=== PATIENT | male | born 1950 | race Caucasian/White ===

== ENCOUNTER → 2016-12-28 | Outpatient (CLI) | payer MEDICARE, OTHER ==
[2016-12-28 18:25] LABS: CALCIUM LEVEL 8.6 MG/DL (8.8-10.2); CREATININE FOR GFR 1.64 MG/DL (0.70-1.30); GLOMERULAR FILTRATION RATE 44.7 (>49); POTASSIUM SERUM 4.6 MEQ/L (3.5-5.1)
== END ==
LOC: M SMT 14:46
PROVIDERS: ATTEND Nurse Practitioner Women's Health
DX: N13.39 Other hydronephrosis (principal)
CPT/HCPCS: 36415; 51703; 80048; G0463

== ENCOUNTER → 2016-12-31 | Outpatient (CLI) | payer MEDICARE, OTHER ==
--- NOTE | 2016-12-31 11:14 | REP ---
Clinical: Benign prostatic hypertrophy. Technique: Real time georges scale and color evaluation of the kidneys and bladder using curved array transducer. Findings: The bilateral kidneys demonstrate subtle age-related changes. The right kidney is relatively normal in contour, size, echogenicity and reniform shape without hydronephrosis, nephrolithiasis or cystic abnormality. Right kidney measures 13.9 x 7.0 x 5.5 cm and a 1.1 cm angiomyolipoma in the lower pole cannot be excluded. The left kidney is relatively normal in contour, size, echogenicity and reniform shape with mild hydronephrosis, but no evidence for nephrolithiasis, cystic or mass lesion. Left kidney measures 13.1 x 5.3 x 6.8 cm. A Flaherty catheter is identified in collapsed bladder and bladder mass cannot be excluded. Impression: 1. 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 2. Flaherty catheter is identified in collapsed bladder and bladder mass cannot be excluded. Further evaluation possibly with cystoscopy may be warranted. Signed by Alverto Zambrano MD 12/31/2016 11:06 A
== END ==
LOC: M RAD 10:14
PROVIDERS: ATTEND Nurse Practitioner Women's Health
DX: N40.1 Benign prostatic hyperplasia with lower urinary tract symptoms (principal); N28.9 Disorder of kidney and ureter, unspecified; N13.30 Unspecified hydronephrosis

== ENCOUNTER → 2017-01-11 | Outpatient (REF) | payer MEDICARE, OTHER ==
[2017-01-11 20:49] LABS: BACTERIA, URINE LARGE AMOUNT; HYALINE CAST, URINE NONE SEEN /lpf (0-1); MICROSCOPIC EXAM PERFORMED; RBC, URINE TNTC /hpf (0-3); SQUAMOUS EPITHELIAL CELL URINE NONE SEEN /hpf (SMALL AMT); WBC, URINE TNTC /hpf (0-3)
== END ==
LOC: M SMT 16:17
PROVIDERS: ATTEND Specialist
DX: N40.1 Benign prostatic hyperplasia with lower urinary tract symptoms (principal); R33.8 Other retention of urine; R31.0 Gross hematuria; N39.0 Urinary tract infection, site not specified

== ENCOUNTER → 2017-01-15 | Outpatient (CLI) | payer MEDICARE, OTHER ==
[~2017-01-15] MED LIST: FUROSEMIDE 20 MG/2 ML VIAL (J1940) As Ordered ONE
--- NOTE | 2017-01-15 11:49 | REP ---
NUCLEAR RENAL SCINTIGRAPHY WITH DIFFERENTIAL FLOW AND FUNCTION ANALYSIS AND POST LASIX RENOGRAPHY : HISTORY: BPH with lower urinary symptoms. TECHNIQUE: 8.7 mCi technetium 99m MAG 3 is injected and posterior flow and excretory phase images are acquired. Renal cortical regions of interest are drawn and time activity curves are plotted for renal function analysis. 20 mg of intravenous Lasix is administered and post Lasix washout venography is acquired. SCINTIGRAPHIC FINDINGS: Posterior flow study shows symmetric perfusion of the renal beds. Excretory phase images suggest that the right kidney is larger than the left. No mass lesion is seen on either side. Renal collecting system labeling is observed symmetrically bilaterally at 3 minutes. There is some fullness of the intrarenal collecting systems bilaterally. Pre and postvoid bladder images show postvoid bladder residual . Differential renal function analysis is asymmetric with 32% of renal cortical counts coming from the left kidney and 68% coming from the right. [id number]-[id number] activity is essentially normal bilaterally at 3.0 minutes. Qbtv-[id number] max activity however is quite dilated over 30 minutes bilaterally. Renal excretion curves are flat. Post Lasix venography shows fairly flat post Lasix renal pelvic curves as well with poor clearance. No t-1/2 could be reached on either side in the 29-minute observation period after Lasix. IMPRESSION: Findings consistent with bilateral impaired excretory function. Flow is symmetric. The right kidney is larger than the left. There is poor Lasix washout of dilated intrarenal collecting system bilaterally. I cannot exclude bilateral obstructive uropathy. The initial postvoid images show some postvoid residual. The post Lasix postvoid images show complete emptying of the bladder. Signed by Haris Smith MD 01/15/2017 01:20 P
== END ==
LOC: M RAD 09:09
PROVIDERS: ATTEND Specialist
DX: N40.1 Benign prostatic hyperplasia with lower urinary tract symptoms (principal)
CPT/HCPCS: 78708; A9562; J1940

== ENCOUNTER → 2017-01-18 | Outpatient (CLI) | payer MEDICARE, OTHER | LOC: M SMT 09:18 | PROVIDERS: ATTEND Specialist | DX: N40.1 Benign prostatic hyperplasia with lower urinary tract symptoms (principal) | CPT/HCPCS: 36415; 51702; G0103; G0463 ==

== ENCOUNTER → 2017-01-25 | Outpatient (REF) | payer MEDICARE, OTHER | LOC: M LAB REF 13:28 | PROVIDERS: ATTEND Nurse Practitioner Women's Health | DX: N39.0 Urinary tract infection, site not specified (principal) ==

== ENCOUNTER → 2017-03-09 | Outpatient (REF) | payer MEDICARE, OTHER | LOC: M LAB REF 12:43 | PROVIDERS: ATTEND Internal Medicine Nephrology | DX: N32.0 Bladder-neck obstruction (principal); N13.9 Obstructive and reflux uropathy, unspecified ==

== ENCOUNTER → 2017-05-05 | Outpatient (CLI) | payer MEDICARE, OTHER ==
--- NOTE | 2017-05-05 15:39 | REP ---
TRANSRECTAL PROSTATE ULTRASOUND: Transrectal prostate ultrasound performed. The prostate gland measures 3.1 x 2.7 x 4.0 cm for a total volume of 17.7 mL. Echotexture is diffusely heterogeneous. There are some echogenic calcifications. No discrete nodule is seen within the prostate. The seminal vesicles appear symmetrical. IMPRESSION: No prostate nodule sonographically. Signed by Mic Olivas MD 05/05/2017 05:09 P
== END ==
LOC: M SMT 13:01
PROVIDERS: ATTEND Specialist
DX: N40.1 Benign prostatic hyperplasia with lower urinary tract symptoms (principal)

== ENCOUNTER → 2017-09-10 | Outpatient (CLI) | payer MEDICARE, OTHER ==
[2017-09-10 14:15] LABS: ANION GAP 8 MEQ/L (8-16); BLOOD UREA NITROGEN 24 MG/DL (7-18); CALCIUM LEVEL 9.1 MG/DL (8.8-10.2); CARBON DIOXIDE LEVEL 27 MEQ/L (21-32); CHLORIDE LEVEL 108 MEQ/L (98-107); CREATININE FOR GFR 1.78 MG/DL (0.70-1.30); GLOMERULAR FILTRATION RATE 40.5 (>49); GLUCOSE, FASTING 86 MG/DL (70-100); SODIUM LEVEL 143 MEQ/L (136-145)
[2017-09-10 14:17] LABS: POTASSIUM SERUM 5.3 MEQ/L (3.5-5.1)
== END ==
LOC: M SMT 10:41
DX: Z01.89 Encounter for other specified special examinations (principal)

== ENCOUNTER 2018-01-05 06:42 | Day surgery (SDC) | payer MEDICARE, OTHER ==
[2018-01-05] MEDS: NS 1,000 ML IV (07:11)
[2018-01-05] MEDS ORDERED: PROPOFOL 200 MG/20 ML VIAL As Ordered ×2 (07:31→08:26)
[2018-01-05] MEDS ORDERED: LIDOCAINE 2% INJ 100 MG/5 ML SDV (FOR ANES.) As Ordered (07:31)
[2018-01-05] MEDS ORDERED: fentaNYL 100 MCG/2 ML INJECTION (J3010) As Ordered (07:58)
== END 2018-01-05 09:13 | disposition home or self-care (01) ==
LOC: M OPP 06:42
DX: Z12.11 Encounter for screening for malignant neoplasm of colon (principal); K64.0 First degree hemorrhoids; Z98.0 Intestinal bypass and anastomosis status; K63.89 Other specified diseases of intestine; K57.30 Diverticulosis of large intestine without perforation or abscess without bleeding; Z86.010 Personal history of colon polyps; K22.8 Other specified diseases of esophagus; K44.9 Diaphragmatic hernia without obstruction or gangrene; R12 Heartburn; I10 Essential (primary) hypertension; J44.9 Chronic obstructive pulmonary disease, unspecified; E78.00 Pure hypercholesterolemia, unspecified; K22.70 Barrett's esophagus without dysplasia; Z79.82 Long term (current) use of aspirin; Z79.899 Other long term (current) drug therapy; Z87.891 Personal history of nicotine dependence
CPT/HCPCS: 45380

== ENCOUNTER → 2021-04-07 | Outpatient (REF) | payer MEDICARE, OTHER ==
[~2021-04-07] MED LIST changes: +ATEN50TA2 PO; -FUROSEMIDE 20 MG/2 ML VIAL (J1940) As Ordered ONE; +LISI20TA33 PO; +MAGN1TAB26 PO; +OMEP1CAP73 PO; +SIMV20TA22 PO
== END ==
LOC: M LAB REF 13:30
PROVIDERS: ATTEND Internal Medicine Nephrology
DX: E83.42 Hypomagnesemia (principal)

== ENCOUNTER → 2021-10-08 | Outpatient (REF) | payer MEDICARE, OTHER | LOC: M LAB REF 12:59 | PROVIDERS: ATTEND Nurse Practitioner Family | DX: N18.31 Chronic kidney disease, stage 3a (principal); E83.42 Hypomagnesemia ==

== ENCOUNTER 2023-06-16 07:26 | Day surgery (SDC) | payer MEDICARE, OTHER ==
[~2023-06-16] VITALS: Ht 177.8 cm; Wt 78.8 kg
[~2023-06-16 07:26] MED LIST changes: +NS 1,000 ML IV ONE; +VITA200012 PO
[2023-06-16] MEDS ORDERED: LIDOCAINE 2% 100MG/5ML SDV (FOR ANES.) As Ordered ONE (09:44)
[2023-06-16] MEDS ORDERED: propofoL 200 MG/20 ML VIAL As Ordered ONE ×2 (09:44→09:55)
[2023-06-16 10:24] VITALS: TEMP 97.7
[2023-06-16 10:35] VITALS: BP 130/75; O2SAT 98
== END 2023-06-16 10:35 | disposition home or self-care (01) ==
LOC: M OPP 07:26
PROVIDERS: ATTEND Internal Medicine Gastroenterology
DX: Z86.010 Personal history of colon polyps (principal); K64.0 First degree hemorrhoids; K57.30 Diverticulosis of large intestine without perforation or abscess without bleeding; Z98.0 Intestinal bypass and anastomosis status; K22.70 Barrett's esophagus without dysplasia; K31.A19 Gastric intestinal metaplasia without dysplasia, unspecified site; K22.89 Other specified disease of esophagus; K44.9 Diaphragmatic hernia without obstruction or gangrene; E78.5 Hyperlipidemia, unspecified; K21.9 Gastro-esophageal reflux disease without esophagitis; J44.9 Chronic obstructive pulmonary disease, unspecified; N40.0 Benign prostatic hyperplasia without lower urinary tract symptoms; Z87.891 Personal history of nicotine dependence; Z79.899 Other long term (current) drug therapy
CPT/HCPCS: 43239; 88305; G0105